=== PATIENT | male | born 1995 | race Two or more races ===

== ENCOUNTER 2023-06-15 19:27 | Emergency (ER) | payer OTHER ==
[~2023-06-15] VITALS: Ht 170.2 cm; Wt 73.5 kg
[2023-06-15] MEDS ORDERED: IBUP80TA PO (22:32)
[2023-06-15 22:50] VITALS: BP 129/86; TEMP 97.6; O2SAT 99
== END 2023-06-15 22:45 | disposition home or self-care (01) ==
LOC: M ED 19:27
DX: S43.102A Unspecified dislocation of left acromioclavicular joint, initial encounter (principal); Y92.9 Unspecified place or not applicable; Y93.9 Activity, unspecified; Y99.0 Civilian activity done for income or pay; F17.210 Nicotine dependence, cigarettes, uncomplicated; Z79.1 Long term (current) use of non-steroidal anti-inflammatories (NSAID)